=== PATIENT | male | born 1965 | race Caucasian/White ===

== ENCOUNTER 2018-04-28 09:29 | Observation (INO) | payer BC, OTHER ==
[2018-04-28] MEDS ORDERED: DILTIAZEM 125 MG in D5W 125 ML IV ONE (09:51)
[2018-04-28] MEDS ORDERED: NS 1,000 ML IV ONE (09:51)
[2018-04-28] MEDS ORDERED: DILTIAZEM 25 MG/5 ML VIAL IVP ONE (09:51)
--- NOTE | 2018-04-28 09:51 | EDPHY ---
H & P Time Seen by Provider: 04/28/18 09:40 HPI/ROS: Chief complaint. Atrial fibrillation HPI. 53-year-old male with sudden onset of palpitations irregular heartbeat and lightheadedness this morning. No similar symptoms previously. No chest discomfort though odd sensation is chest from the palpitations. No significant shortness of breath or abdominal pain. Significant lightheadedness with trying to stand up. He has had recent upper respiratory infection and is on 2nd course of antibiotics. He did have coffee this morning. ROS Constitutional. no fever/chills, no weakness Eyes. no problems with vision ENT. no sore throat, no nasal drainage Cardiovascular. Palpitations Respiratory. no shortness of breath, no cough Abdominal. no abdominal pain, no nausea/vomiting, no diarrhea . no problems urinating MS. no calf pain/swelling, no neck/back pain, no joint pain Skin. no rash Lymph. no swollen glands Neuro. Lightheaded Past Medical/Surgical History: Tonsillectomy, nasal surgery, mononucleosis Family history of coronary artery disease Social History: , nonsmoker, no alcohol Smoking Status: Never smoked Physical Exam: General Appearance: Alert pleasant well-developed male moderate distress vital signs significant for heart rate approximately 140 an initial blood pressure is 102/80 and then 94/72 Eyes: Pupils equal and round no pallor or injection. ENT, Mouth: Mucous membranes are moist. Respiratory: There are no retractions, lungs are clear to auscultation. Cardiovascular: Irregularly irregular rate and rhythm Gastrointestinal: Abdomen is soft and nontender, no masses, bowel sounds normal. Neurological: Awake and alert, sensory and motor exams grossly normal. Skin: Warm and dry, no rashes. Musculoskeletal: Neck is supple nontender. Extremities symmetrical, full range of motion. Psychiatric: Patient is oriented X 3, there is no agitation. Constitutional: Initial Vital Signs Temperature (C) 36.8 C 04/28/18 09:32 Heart Rate 112 H 04/28/18 09:32 Respiratory Rate 18 04/28/18 09:32 Blood Pressure 102/80 04/28/18 09:32 O2 Sat (%) 98 04/28/18 09:32 O2 Delivery Mode Room Air Allergies/Adverse Reactions: strawberry Allergy (Verified 04/28/18 09:34) walnut Allergy (Verified 04/28/18 09:34) Home Medications: Medication Instructions Recorded Anastrozole [Arimidex 1 mg (*)] 1 mg PO AD 04/28/18 Compounded Testosterone Topica 1 applic TP DAILY 04/28/18 Finasteride [Proscar 5 MG (*)] 5 mg PO DAILY 04/28/18 Diltiazem [Cardizem Ir Q6hr] 30 - 60 mg PO Q6 PRN #30 tab 04/29/18 Medical Decision Making - Diagnostics EKG Interpretation: EKG interpreted by me shows atrial fibrillation with rapid ventricular response. Normal axis. QRS is otherwise normal there is no significant ST elevation or depression. Ventricular response is 152 Procedures: IV normal saline, monitor. Fluid bolus due to hypotension. 15 mg IV of diltiazem is given to the patient and slows his heart rate to about 80. Pressure stays around 92/74. However patient is feeling better. Lovenox subcutaneously ED Course/Re-evaluation: On serial evaluations patient remained stable. I consulted and discussed the case with Dr. Elder for cardiology who sees the patient in the emergency department Patient is given Lovenox subcu I consulted and discussed the case with Dr. Skyler Elder, hospitalist who agrees to the admission Differential Diagnosis: Patient is in atrial fibrillation of 1st onset with rapid ventricular response. Mild hypotension with his atrial fibrillation. I considered acute coronary syndrome, electrolyte abnormalities. Patient has been rate controlled. - Data Points Laboratory Results: Laboratory Results 04/28/18 09:50 04/28/18 09:50 Medications Given: Discontinued Medications Diltiazem HCl (Cardizem 25 Mg/5 Ml Vial) 20 mg IVP EDNOW ONE Stop: 04/28/18 09:52 Last Admin: 04/28/18 09:57 Dose: 15 mg Diltiazem HCl (Cardizem Immediate Release) 60 mg PO Q8HRS [facility] Stop: 10/25/18 13:59 Last Admin: 04/29/18 06:19 Dose: 60 mg Enoxaparin Sodium (Lovenox) 80 mg SC EDNOW ONE Stop: 04/28/18 10:37 Last Admin: 04/28/18 10:56 Dose: 80 mg Enoxaparin Sodium (Lovenox) 80 mg SC BID [facility] Stop: 10/25/18 20:59 Last Admin: 04/29/18 07:59 Dose: Not Given Diltiazem HCl 125 mg/ Dextrose 125 mls @ 0 mls/hr IV EDNOW ONE; As Directed PRN Reason: Protocol Stop: 04/28/18 09:52 Last Admin: 04/28/18 10:40 Dose: Not Given Sodium Chloride (Ns) 1,000 mls @ 0 mls/hr IV EDNOW ONE; Wide Open PRN Reason: Protocol Stop: 04/28/18 09:52 Last Admin: 04/28/18 09:57 Dose: 1,000 mls Sodium Chloride (Ns) 1,000 mls @ 125 mls/hr IV CONT [facility] Stop: 10/25/18 14:29 Last Admin: 04/29/18 03:21 Dose: 1,000 mls Sodium Chloride (Ns) 500 mls @ 0 mls/hr IV ONCE ONE PRN Reason: Wide Open Stop: 04/28/18 14:30 Last Admin: 04/28/18 15:02 Dose: 500 mls Point of Care Test Results: Chemistry 04/28/18 10:02 POC Troponin I 0.00 ng/mL ng/mL (0.00-0.08) Departure - Departure Disposition: [facility] Inpatient Acute Clinical Impression: Atrial fibrillation Qualifiers: Atrial fibrillation type: unspecified Qualified Code(s): I48.91 - Unspecified atrial fibrillation Condition: Fair
[2018-04-28 09:59] LABS: PLATELET COUNT 213 10^3/uL (150-400)
[2018-04-28 10:06] LABS: INR 0.99 (0.83-1.16); PROTIME(PATIENT) 13.3 SEC (12.0-15.0)
[2018-04-28] MEDS ORDERED: ENOXAPARIN 80 MG/0.8 ML SYR SC ONE (10:36)
[2018-04-28] MEDS ORDERED: ACETAMINOPHEN 325 MG TAB PO PRN (12:12)
[2018-04-28] MEDS ORDERED: DILTIAZEM 125 MG in D5W 125 ML IV SCH (12:15)
--- NOTE | 2018-04-28 12:24 | PDCARCONS ---
Cardiology Consult Reason for Consult: Atrial fibrillation Chief Complaint: Palpitations, weakness Requesting Physician: Dr. 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 I met him in the emergency department with his and daughter present. He developed palpitations this morning after having a cup of coffee. He was somewhat weak, called my partner Dr. Tj Malcolm. He was noted to be in atrial fibrillation with rapid ventricular response in the emergency department. He received bolus of intravenous diltiazem and is currently receiving IV fluids. At this time he feels slightly weak but otherwise well. He reports no chest pain. He has some back pain lasting for 1 sec its, this is interscapular, worse when he turns his neck to the left side, has occurred x3 since he has been in the emergency department, currently pain-free. No syncope. He reports that he was very ill with what he thought was a viral pharyngitis over the last month. He took 2 courses of azithromycin, 5 days each and started feeling better yesterday. He reports working hard in his garage, doing some pull-ups, also did use a single dose of steroid (anastrazole) that has been prescribed to him by Dr. Nj. He did have 3 alcoholic drinks last night. History Information - Allergies/Home Medication List Allergies/Adverse Reactions: strawberry Allergy (Verified 04/28/18 09:34) walnut Allergy (Verified 04/28/18 09:34) Home Medications: Anastrozole [Arimidex 1 mg (*)] 1 mg PO AD 04/28/18 [Last Taken 04/27/18] Compounded Testosterone Topica 1 applic TP DAILY 04/28/18 [Last Taken Unknown] Finasteride [Proscar 5 MG (*)] 5 mg PO DAILY 04/28/18 [Last Taken Unknown] I have personally reviewed and updated: family history, medical history, social history, surgical history (Family history of early coronary artery disease) Past Medical History: - Past Medical History Additional medical history: Coronary calcium score 0 a few months ago according to patient - Family History Positive for: CAD - Social History Smoking Status: Never smoked Alcohol Use: Occasionally Drug Use: None Age in Years: < 65 Sex: Male Congestive Heart Failure History: No Hypertension History: No Stroke/TIA/Thromboembolism History: No Vascular Disease History: No Diabetes Mellitus: No [id number] Score: 0 Physical Exam Physical Exam: Temp Pulse Resp BP Pulse Ox 36.7 C 107 H 16 94/65 L 98 04/28/18 11:48 04/28/18 11:48 04/28/18 11:48 04/28/18 11:48 04/28/18 11:48 Constitutional: no apparent distress, appears nourished, not in pain Ears, Nose, Mouth, Throat: moist mucous membranes, hearing normal Cardiovascular: irregularly irregular Respiratory: no respiratory distress, clear to auscultation Gastrointestinal: soft, non-tender abdomen Skin: warm, normal color Neurologic: AAOx3 Psychiatric: interacting appropriately, not anxious, not encephalopathic Lab and Imaging 04/28/18 09:50 04/28/18 09:50 WBC 5.92 10^3/uL (3.80-9.50) 04/28/18 09:50 RBC 5.42 10^6/uL (4.40-6.38) 04/28/18 09:50 Hgb 17.1 g/dL (13.7-17.5) 04/28/18 09:50 Hct 48.7 % (40.0-51.0) 04/28/18 09:50 MCV 89.9 fL (81.5-99.8) 04/28/18 09:50 MCH 31.5 pg (27.9-34.1) 04/28/18 09:50 MCHC 35.1 g/dL (32.4-36.7) 04/28/18 09:50 RDW 12.4 % (11.5-15.2) 04/28/18 09:50 Plt Count 213 10^3/uL (150-400) 04/28/18 09:50 MPV 10.1 fL (8.7-11.7) 04/28/18 09:50 Neut % (Auto) 60.3 % (39.3-74.2) 04/28/18 09:50 Lymph % (Auto) 25.5 % (15.0-45.0) 04/28/18 09:50 Wallace % (Auto) 10.8 % (4.5-13.0) 04/28/18 09:50 Eos % (Auto) 2.4 % (0.6-7.6) 04/28/18 09:50 Baso % (Auto) 0.8 % (0.3-1.7) 04/28/18 09:50 Nucleat RBC Rel Count 0.0 % (0.0-0.2) 04/28/18 09:50 Absolute Neuts (auto) 3.57 10^3/uL (1.70-6.50) 04/28/18 09:50 Absolute Lymphs (auto) 1.51 10^3/uL (1.00-3.00) 04/28/18 09:50 Absolute Monos (auto) 0.64 10^3/uL (0.30-0.80) 04/28/18 09:50 Absolute Eos (auto) 0.14 10^3/uL (0.03-0.40) 04/28/18 09:50 Absolute Basos (auto) 0.05 10^3/uL (0.02-0.10) 04/28/18 09:50 Absolute Nucleated RBC 0.00 10^3/uL (0-0.01) 04/28/18 09:50 Immature Gran % 0.2 % (0.0-1.1) 04/28/18 09:50 Immature Gran # 0.01 10^3/uL (0.00-0.10) 04/28/18 09:50 PT 13.3 SEC (12.0-15.0) 04/28/18 09:50 INR 0.99 (0.83-1.16) 04/28/18 09:50 APTT 30.8 SEC (23.0-38.0) 04/28/18 09:50 Sodium 139 mEq/L (135-145) 04/28/18 09:50 Potassium 3.9 mEq/L (3.3-5.0) 04/28/18 09:50 Chloride 105 mEq/L (97-110) 04/28/18 09:50 Carbon Dioxide 25 mEq/l (22-31) 04/28/18 09:50 Anion Gap 9 mEq/L (8-16) 04/28/18 09:50 BUN 14 mg/dL (7-23) 04/28/18 09:50 Creatinine 0.9 mg/dL (0.7-1.3) 04/28/18 09:50 Estimated GFR > 60 04/28/18 09:50 Glucose 88 mg/dL (70-100) 04/28/18 09:50 Calcium 9.6 mg/dL (8.5-10.4) 04/28/18 09:50 POC Troponin I 0.00 ng/mL (0.00-0.08) 04/28/18 10:02 EKG additional interpertation: Atrial fibrillation, rapid ventricular response, 152 beats per minute. No acute ST or T-wave changes. Telemetry: Atrial fibrillation, ventricular rate 80-90 beats per minute. This is post diltiazem A/P Assessment: 1. 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 Episode likely triggered by upper respiratory illness, alcohol, probably contributed to by sleep apnea. [id number] Score is 0, we will give him Lovenox in the acute phase especially since he may need cardioversion procedure if he does not self convert to sinus rhythm. At this time he does not meet indications for long-term anticoagulation therapy. We discussed options of wait and watch versus performing a BABITA guided cardioversion today. We have agreed to wait and watch, most episodes of atrial fibrillation will self terminate within 24 hr. If he is still in atrial fibrillation tomorrow morning, he will undergo BABITA guided cardioversion. We will obtain echocardiogram to assess LV function and valvular structures and also to look for pericardial effusion given recent viral illness. He does snore, I have asked that he be tested for sleep apnea.
--- NOTE | 2018-04-28 12:26 | ECHO ---
[email or web address] [address] [address] Main: [phone] Fax: [email or web address] Echocardiogram Name: DENICE VILLARREAL MR#: [id number] Study Date: 04/28/2018 Study Time: 11:17 AM Date of : 1965 Age: 53 year(s) Height: 185.4 cm (73 in.) Weight: 80.29 kg (177 lb.) BSA: 2.04 m2 Gender: Male Examination: Echo Indication: Atrial Fibrillation Image Quality: Adequate Contrast: Requested by: Naman Elder BP: 92 mmHg/74 mmHg Heart Rate: Rhythm: Indication: Atrial Fibrillation Procedure Staff Sap Trainer: Joselin Mcdonald [facility] Reading Physician: Eric Bianchi MD Requesting Provider: Conclusions: Normal size left ventricle. EF is 68 %. No regional wall motion abnormality. Normal RV function. The left atrium is normal in size. Trivial to mild mitral regurgitation. No mitral stenosis is present. The aortic valve is tri-leaflet. The tricuspid valve is normal in appearance and function. Trivial to mild tricuspid valve regurgitation. Right ventricular systolic pressure measures 23mmHg. Normal study Measurements: Chambers Valvular Assessment AV/MV Valvular Assessment TV/PV Normal Normal Normal Name Value Range Name Value Range Name Value Range Ao Romina (MM): 3.0 cm (2.2 cm-3.7 AV Vmax: 0.82 m/s (1 m/s-1.7 TR Vmax: 2.11 mm/s ( - ) cm) m/s) TR PGmax: 18 mmHg ( - ) IVSd (2D): 0.9 cm (0.6 cm-1.1 AV maxP mmHg ( - ) syst. PAP: 23 mmHg ( - ) cm) LVOT Vmax: 0.93 m/s (0.7 m/s-1.1 PV Vmax: 0.68 m/s (0.6 m/s-0.9 LVDd (2D): 4.2 cm (4.2 cm-5.9 m/s) m/s) cm) MV E Vmax: 0.96 m/s ( - ) PV PGmax: 2 mmHg ( - ) LVDs (2D): 2.5 cm (2.1 cm-4 cm) LVPWd (2D): 1.1 cm (0.6 cm-1 cm) LVEF (BP): 68 % (>=55 %) RVDd(2D): 3.1 cm (1.9 cm-3.8 cmmm) Patient: DENICE VILLARREAL Study Date: 04/28/2018 Page 1 of 2 11:17 AM Continued Measurements: Chambers Valvular Assessment AV/MV Valvular Assessment TV/PV Name Value Name Value Name Value LADs Lon.1 cm MV DecTime: 211 m/s CVP (est.): 5 mmHg LA Area: 13.9 cm2 LA Volume: 44 ml LA Volume Index: 21.6 ml/m2 TAPSE: 2.0 cm RA Area: 14.3 cm2 Additional Vessels Name Value Ao Ascendin.3 cm Findings: Left Ventricle: Normal size left ventricle. No LV hypertrophy. Normal global systolic LV function. EF is 68 %. No regional wall motion abnormality. Normal diastolic LV function. Right Ventricle: Normal size right ventricle. Normal RV function. Left Atrium: The left atrium is normal in size. Right Atrium: The right atrium is normal in size. Mitral Valve: The mitral valve is normal in appearance. Trivial to mild mitral regurgitation. No mitral stenosis is present. Aortic Valve: The aortic valve is tri-leaflet. There is no aortic valve regurgitation. No aortic valve stenosis is present. Tricuspid Valve: The tricuspid valve is normal in appearance and function. Trivial to mild tricuspid valve regurgitation. Right ventricular systolic pressure measures 23mmHg. The pulmonary artery pressure is normal. Pulmonic Valve: The pulmonic valve is normal in appearance and function. Trivial pulmonic valve regurgitation. Aorta: Normal size aortic root measuring 3.0 cm. Normal size ascending aorta measuring 3.3 cm. Pericardium: No pericardial effusion. (No Signature Object) Patient: DENICE VILLARREAL Study Date: 04/28/2018 Page 2 of 2 11:17 AM [id number]
[2018-04-28] MEDS: DILTIAZEM 60 MG TAB PO SCH ×2 (13:10→22:57)
[2018-04-28] MEDS ORDERED: NS 500 ML IV ONE (14:29)
--- NOTE | 2018-04-28 15:14 | CPEKG ---
Test Reason : OPEN Blood Pressure : / mmHG Vent. Rate : 152 BPM Atrial Rate : 205 BPM P-R Int : 132 ms QRS Dur : 078 ms QT Int : 299 ms P-R-T Axes : 000 074 -09 degrees QTc Int : 476 ms Atrial fibrillation Minimal ST depression, diffuse leads Borderline prolonged QT interval Confirmed by Gian Cole ([id number]) on 04/28/2018 3:13:38 PM Referred By: Confirmed By:Gian Cole
--- NOTE | 2018-04-28 18:13 | GHP ---
DATE OF ADMISSION: 04/28/2018 CHIEF COMPLAINT: Irregular heart rhythm. HISTORY OF PRESENT ILLNESS: The patient is a pleasant 53-year-old gentleman with no major past medic al history, who awoke this morning in his normal state of health and after sitting down to have a cup of coffee, started feeling rather fatigued and noted his heart rate to be elevated and irregular. H e could feel his heart rate beating approximately 140 beats per minute and then presented to the [facility] for further evaluation. In the emergency room, he was found to be in atrial f ibrillation with rapid ventricular response. He was given IV diltiazem, which did improve his heart rate. Dr. Elder was in the emergency room and was able to consult on this case and tentative plan was for admission to the hospital with anticoagulation with a plan for potential cardioversion tomorrow m orning unless the patient self-converts. Patient was given a dose of Lovenox in the emergency room, which we have continued. I reviewed the case with Dr. Elder on the floor and his heart rates were gene rally in the 1 teens and we opted not to continue with the IV diltiazem but rather oral diltiazem at 60 mg every 8 hours. PAST MEDICAL HISTORY: No major past medical history. PAST SURGICAL HISTORY: 1. Tonsillectomy. 2. Nasal surgery. MEDICATIONS: No daily medications taken, although the patient states he has been having recent upper respiratory illness and was taking a course of azithromycin as well as 4 days of Medrol. ALLERGIES: 1. [place]. 2. [place]. FAMILY HISTORY: Mother and father are both living. There is a significant history of heart disease in the family with his paternal grandfather having from a myocardial infarction in his late 40s . His father as well as a history of coronary artery disease, having [place] and also with atrial fibrill ation. I believe this also developed in his 40s. His mother, as well, has a history of heart diseas e, having a heart attack in her mid 50s. SOCIAL HISTORY: Patient is currently . He has children. He is not a current smoker. REVIEW OF SYSTEMS: CONSTITUTIONAL: No complaints of any fevers or chills. ENT: Positive for recen t upper respiratory illness for which the patient was taking azithromycin. 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 CARDIOVASCULAR: No complaints of any chest pressure. No syncopal events. Positive for palpitations. RESPIRATORY: No complaints of shortness of breath or wheezing. GI: No abdominal leslie ns, nausea, vomiting, diarrhea, or constipation. : No reports of any difficulty with urination. NEUROLOGIC: No complaints of any headaches or focal weakness. HEMATOLOGIC: No history of any deep vein thrombosis or pulmonary embolism. PSYCHIATRIC: No history of anxiety or depression. ENDOCRINE : No thyroid abnormalities. SKIN: No new skin rashes. MUSCULOSKELETAL: No focal joint pains. PHYSICAL EXAM: VITAL SIGNS: Temperature 36.7, blood pressure 94/65, heart rate 107, respirations 16 , saturating 98% on room air. GENERAL: Patient appears comfortable. He is awake, alert, conversant , no acute distress. HEENT: Extraocular movements intact. No scleral icterus is noted. NECK: No bruit of the neck noted. CHEST: Clear on auscultation with normal respiratory effort. HEART: Irre gularly irregular. No significant murmurs appreciated. Relatively soft heart sounds. ABDOMEN: Sof t, nontender, nondistended. : No Boothe catheter in place. EXTREMITIES: No significant pitting e camilo. NEUROLOGIC: Cranial nerves 2-12 grossly intact. LABS: White blood cell count 5, hemoglobin 17, platelets 213. Sodium 139, potassium 3.9, chloride 1 05, bicarb 25, BUN 14, creatinine 0.9, glucose of 88. INR 0.99, PTT 30. ECG: Atrial fibrillation with rapid ventricular rate. ASSESSMENT AND PLAN: Atrial fibrillation with rapid ventricular response, new onset. Dr. Elder has be en consulted and echocardiogram has been obtained. His TSH is within normal limits. Tentative plan is for anticoagulation with Lovenox. He has been treated with IV diltiazem in the emergency room and we have adjusted this to 60 mg IV every 8 hours per my discussion with Dr. Elder. Potential cardiover gonzalo tomorrow morning unless patient converts on his own. DISPOSITION: I will admit under observation status. /[id number]/MODL
[2018-04-28] MEDS: NS 1,000 ML IV SCH (19:19)
[2018-04-28] MEDS ORDERED: MAGNESIUM SULF 2 GM/WATER 50 ML IV PRN (21:02)
[2018-04-28] MEDS: ENOXAPARIN 80 MG/0.8 ML SYR SC SCH (22:42)
[2018-04-29] MEDS: NS 1,000 ML IV SCH (03:21)
[2018-04-29 04:50] LABS: PLATELET COUNT 172 10^3/uL (150-400)
[2018-04-29] MEDS: DILTIAZEM 60 MG TAB PO SCH (06:19)
[2018-04-29] MEDS: ENOXAPARIN 80 MG/0.8 ML SYR SC SCH (07:59)
[2018-04-29 08:05] VITALS: BP 105/67
[2018-04-29] MEDS ORDERED: FINASTERIDE 5 MG TAB PO SCH (09:00)
--- NOTE | 2018-04-29 09:21 | ASDISCHSUM ---
Discharge Information Plan Status:Home with No Needs Medically Cleared to Leave:04/29/2018 Discharge Date:04/29/2018 09:07 AM CM D/C Disposition:Home, Routine, Self-Care ADT D/C Disposition:Home, Routine, Self-Care Projected Discharge Date:04/29/2018 09:07 AM Transportation at D/C:Self Discharge Delay Reason: Follow-Up Date:04/29/2018 09:07 AM Discharge Slot: Final Diagnosis: Placement Information Patient Contact Information Contact Name:DAVID Relationship: Address:[address] City:[place] Alternate Phone: State/Zip Code:[place] [address] Email: Financial Information Financial Class:BCOP Primary Plan Desc: OUT OF STATE [facility] Primary Plan Number:[id number] Secondary Plan Desc: Secondary Plan Number: Assessment Information LACE LACE Length of stay for Answers: Less than 1 day current admission Acuity / Level of Answers: No Care: Did the patient have an inpatient admission? Comorbidities - select Answers: Other Notes: AFib all that apply # of Emergency department Answers: 1-2 visits in the last 6 months Score: 2 Date Signed: 04/29/2018 09:21 AM Electronically Signed By:Monika Bajwa RN Intervention Information
--- NOTE | 2018-04-29 17:20 | GDS ---
DISCHARGE DIAGNOSIS: Paroxysmal atrial fibrillation. 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 He was very symptomatic with this and presented to the emergency room. He was given IV diltiazem. Eventually he switched back into a normal sinus rhythm. Dr. Elder saw him in consultation. He cleared him for discharge home. He did n ot think he needed any anticoagulation post discharge. He was continued on oral diltiazem throughout his hospitalization. Appeared to be tolerating it well. He does not desire to take a daily diltiaz em, but requested a prescription for p.r.n. diltiazem if he were to switch back into a rapid atrial f ibrillation as he is leaving town on a trip out of state tomorrow morning through the weekend. He wi ll follow up with Dr. Elder upon returning. His echocardiogram was within normal limits. DISCHARGE MEDICATIONS: Please see computerized record for full detailed list. New medication: Dilt iazem immediate release 30-60 mg p.o. q.6 hours as needed for sustained AFib. ADDITIONAL DISCHARGE INSTRUCTIONS: Follow up with Dr. Elder. Patient was seen and examined by me on the date of discharge. /[id number]/MODL
== END 2018-04-29 09:07 | disposition home or self-care (01) ==
LOC: INTOOBSV 10:37 → UNDOADMIN 11:00 → F2W 11:36
PROVIDERS: ADMIT Internal Medicine; ATTEND Internal Medicine
DX: I48.0 Paroxysmal atrial fibrillation (principal); E86.9 Volume depletion, unspecified; Z82.49 Family history of ischemic heart disease and other diseases of the circulatory system
CPT/HCPCS: 93005; 93306; 96361; 96374; 99285; G0378; 84484-PO; J1650

== ENCOUNTER → 2018-05-29 | Outpatient (CLI) | payer OTHER | LOC: FIMAGING 08:02 | PROVIDERS: ATTEND Radiology Diagnostic Radiology | DX: I83.91 Asymptomatic varicose veins of right lower extremity (principal); I83.92 Asymptomatic varicose veins of left lower extremity ==